=== PATIENT | male | born 1995 | race Caucasian/White ===

== ENCOUNTER 2020-10-27 11:24 | Emergency (ER) | payer BC, OTHER ==
[2020-10-27] MEDS ORDERED: HYDROcodone/APAP 5-325MG 1 EACH TAB PO STA (11:41)
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
--- NOTE | 2020-10-27 13:01 | XR ---
EXAMINATION TYPE: XR forearm LT DATE OF EXAM: 10/27/2020 COMPARISON: NONE HISTORY: Pain Two views of the forearm demonstrate that the osseous structures appear to be intact and the joint sp aces appear to be preserved. There is no acute fracture or dislocation. IMPRESSION: 1. No acute fracture or dislocation
--- NOTE | 2020-10-27 13:03 | XR ---
EXAMINATION TYPE: XR lumbar spine 2 or 3V DATE OF EXAM: 10/27/2020 CLINICAL HISTORY: pain TECHNIQUE: Three views of the lumbar spine are submitted. COMPARISON: None. FINDINGS: Grade 1 retrolisthesis of L4 on L5 measuring 4 mm and grade 1 anterolisthesis of L5 on S1 measuring 3 mm. 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 Disc spaces are well-preserved. No evidence for vertebral body compression fracture. 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
--- NOTE | 2020-10-27 13:04 | XR ---
EXAMINATION TYPE: XR thoracic spine 2V DATE OF EXAM: 10/27/2020 CLINICAL HISTORY: pain TECHNIQUE: Frontal, lateral, and swimmer's view of thoracic spine are obtained. COMPARISON: None. FINDINGS: Thoracic spine show satisfactory alignment without evidence of acute fracture or dislocatio n. Vertebral body heights are preserved. Disc spaces are well preserved. Visualized ribs are unrem arkable. IMPRESSION: No acute fracture or dislocation is seen in the thoracic spine. ICD 10 NO FRACTURE, INIT IAL EVALUATION
[2020-10-27 14:10] VITALS: BP 145/89; PULSE 61; RESP 18; TEMP 98.3
== END 2020-10-27 14:10 | disposition home or self-care (01) ==
LOC: EC 11:24
DX: S40.022A Contusion of left upper arm, initial encounter (principal); M54.5 Low back pain; M25.532 Pain in left wrist; V49.9XXA Car occupant (driver) (passenger) injured in unspecified traffic accident, initial encounter; Y92.410 Unspecified street and highway as the place of occurrence of the external cause
CPT/HCPCS: 70450; 72070; 72100; 72125; 99284